=== PATIENT | female | born 1930 | race Caucasian/White ===

== ENCOUNTER 2017-01-16 11:08 | Emergency (ER) | payer MEDICARE, OTHER ==
[~2017-01-16] VITALS: Ht 152.4 cm; Wt 52.6 kg
[2017-01-16] MEDS ORDERED: PACERONE200 MG PO (12:31)
[2017-01-16] MEDS ORDERED: COREG12.5 MG PO (12:32)
[2017-01-16] MEDS ORDERED: LIPITOR10 MG PO (12:32)
[2017-01-16] MEDS ORDERED: NEURONTIN300 MG PO (12:32)
[2017-01-16] MEDS ORDERED: LANTUS100 UNITS/ SUB-Q (12:33)
[2017-01-16] MEDS ORDERED: IMODIUM A-D2 M2 PO (12:33)
[2017-01-16] MEDS ORDERED: OXYBUTYNIN CHLO10 MG PO (12:34)
[2017-01-16] MEDS ORDERED: TIROSINT100 MCG PO (12:34)
[2017-01-16] MEDS ORDERED: LORAZEPAM0.5 MG PO (12:34)
[2017-01-16] MEDS ORDERED: PATADAY2.5 ML OPTH (12:35)
[2017-01-16] MEDS ORDERED: PRADAXA75 MG PO (12:35)
[2017-01-16] MEDS ORDERED: SLOW RELEASE I142 MG PO (12:36)
[2017-01-16] MEDS ORDERED: FLOMAX0.4 MG PO (12:36)
[2017-01-16] MEDS ORDERED: CIPRO500 MG PO (13:46)
== END 2017-01-16 14:02 | disposition home or self-care (01) ==
LOC: ED 11:08
PROC: 0T9B70Z Drainage of Bladder with Drainage Device, Via Natural or Artificial Opening (ICD-10-PCS; principal; 2017-01-16)
DX: N39.0 Urinary tract infection, site not specified (principal); I48.91 Unspecified atrial fibrillation; I10 Essential (primary) hypertension; E11.9 Type 2 diabetes mellitus without complications; F41.9 Anxiety disorder, unspecified; E03.9 Hypothyroidism, unspecified; Z86.73 Personal history of transient ischemic attack (TIA), and cerebral infarction without residual deficits; Z90.49 Acquired absence of other specified parts of digestive tract; Z90.710 Acquired absence of both cervix and uterus; Z95.0 Presence of cardiac pacemaker; Z95.5 Presence of coronary angioplasty implant and graft; Z88.0 Allergy status to penicillin; Z88.2 Allergy status to sulfonamides; Z88.5 Allergy status to narcotic agent; Z88.8 Allergy status to other drugs, medicaments and biological substances; Z79.899 Other long term (current) drug therapy; Z79.4 Long term (current) use of insulin
CPT/HCPCS: 51701; 81001; 87077; 87088; 87186; 99283

== ENCOUNTER 2017-02-23 16:49 | Emergency (ER) | payer MEDICARE, OTHER ==
[~2017-02-23] VITALS: Ht 152.4 cm; Wt 72.6 kg
[~2017-02-23 16:49] MED LIST: CIPRO500 MG PO; COREG12.5 MG PO; FLOMAX0.4 MG PO; IMODIUM A-D2 M2 PO; LANTUS100 UNITS/ SUB-Q; LIPITOR10 MG PO; LORAZEPAM0.5 MG PO; NEURONTIN300 MG PO; OXYBUTYNIN CHLO10 MG PO; PACERONE200 MG PO; PATADAY2.5 ML OPTH; PRADAXA75 MG PO; SLOW RELEASE I142 MG PO; TIROSINT100 MCG PO
[2017-02-23] MEDS ORDERED: CYMBALTA20 MG PO (19:05)
--- NOTE | 2017-02-25 15:04 | EKG ---
[facility] [address] [facility] [place] [address] Signed Ventricular-paced rhythm Biventricular pacemaker detected Abnormal ECG No previous ECGs available Confirmed by SHERWIN CHURCH MD [id number] on 02/25/2017 3:04:20 PM Electronically Signed By: SHERWIN CHURCH MD 02/25/17 1504 PATIENT NAME: MONIQUE LEAL Electrocardiogram DATE OF : [birth year] PHYSICIAN: SHERWIN CHURCH MD REPORT #: [id number] REPORT IS CONFIDENTIAL AND NOT TO BE RELEASED WITHOUT AUTHORIZATION
== END 2017-02-23 18:50 | disposition home or self-care (01) ==
LOC: ED 16:49
DX: N39.0 Urinary tract infection, site not specified (principal); R41.82 Altered mental status, unspecified; I48.91 Unspecified atrial fibrillation; E11.9 Type 2 diabetes mellitus without complications; I10 Essential (primary) hypertension; F41.9 Anxiety disorder, unspecified; E03.9 Hypothyroidism, unspecified; F32.9 Major depressive disorder, single episode, unspecified; Z86.73 Personal history of transient ischemic attack (TIA), and cerebral infarction without residual deficits; Z95.5 Presence of coronary angioplasty implant and graft; Z90.49 Acquired absence of other specified parts of digestive tract; Z95.1 Presence of aortocoronary bypass graft; Z90.710 Acquired absence of both cervix and uterus; Z88.8 Allergy status to other drugs, medicaments and biological substances; Z88.0 Allergy status to penicillin; Z88.2 Allergy status to sulfonamides; Z88.5 Allergy status to narcotic agent; Z79.899 Other long term (current) drug therapy; Z79.4 Long term (current) use of insulin
CPT/HCPCS: 70450; 71010; 80053; 84484; 85025; 93005; 93010; 99284; G0480